=== PATIENT | male | born 1940 | race Caucasian/White ===

== ENCOUNTER 2019-10-10 08:07 | Emergency (ER) | payer OTHER ==
[~2019-10-10] VITALS: Ht 180.3 cm; Wt 118.8 kg
[2019-10-10] MEDS ORDERED: COZAAR 25 MG TA25 M1 PO (08:16)
[2019-10-10] MEDS ORDERED: TRAMADOL 50 MG50 MG PO (08:17)
[2019-10-10] MEDS ORDERED: HUMALOG100 UNIT/1 SUBQ (08:17)
[2019-10-10] MEDS ORDERED: LANTUS SUBQ (08:18)
--- NOTE | 2019-10-10 09:01 | EKG ---
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 : 1940 Requested By: Cyrus Goldstein Order Number: [id number] MD: Bipin Mckeon Measurements Intervals [place] Rate: 94 P: 16 SC: 197 QRS: -50 QRSD: 102 T: 71 QT: 347 QTc: 434 Interpretive Statements Sinus rhythm Left anterior fascicular block Abnormal R-wave progression, late transition No previous ECG available for comparison Electronically Signed On 10-10-2019 9:00:[address] by Bipin Mckeon [email or web address] <ELECTRONICALLY SIGNED> By: Bipin Mckeon MD, [facility] 10/10/19 0900 0835 [id number] Bipin Mckeon MD, FAC /EPI
[2019-10-10 09:03] LABS: ABSOLUTE NEUTROPHILS 9.3 thou/uL (1.4-8.2); BASOPHILS 0.4 % (0.0-2.0); EOSINOPHILS 0.3 % (0.0-3.0); HEMATOCRIT 39.9 % (42.0-52.0); HEMOGLOBIN 13.1 gm/dL (14.0-18.0); LYMPHOCYTES 9.3 % (24.0-44.0); MCH 34.4 pg (26.0-34.0); MCHC 32.8 g/dL (28.0-37.0); MCV 104.9 fL (80.0-100.0); MONOCYTES 5.8 % (1.0-8.0); PLATELET COUNT 231 thou/uL (150-400); POLYS 84.2 % (36.0-66.0); RDW 14.1 % (10.5-14.5); WBC 11.1 thou/uL (4.0-11.0)
[2019-10-10 09:16] LABS: ANION GAP 9 mmol/L (7-16); BUN 17 mg/dL (7-18); CALCIUM 9.6 mg/dL (8.5-10.1); CHLORIDE 105 mmol/L (98-107); CO2 25 mmol/L (21-32); CREATININE 1.2 mg/dL (0.7-1.3); GLUCOSE 298 mg/dL (74-106); POTASSIUM 4.3 mmol/L (3.5-5.1); SODIUM 139 mmol/L (136-145)
[2019-10-10 09:20] LABS: ALBUMIN 3.4 g/dL (3.4-5.0); MAGNESIUM 1.7 mg/dL (1.8-2.4); SGOT 13 U/L (15-37); SGPT 28 U/L (30-65); TOTAL BILIRUBIN 0.6 mg/dL (<0.1-1.0); TOTAL PROTEIN 7.5 g/dL (6.4-8.2); TROPONIN-I <0.06 ng/mL (<0.06)
[2019-10-10] MEDS ORDERED: TESSALON PERLE100 MG PO (09:49)
[2019-10-10] MEDS ORDERED: DOXYCYCLINE HY100 M3 PO (09:49)
[2019-10-10 10:26] VITALS: BP 136/66
== END 2019-10-10 10:27 | disposition home or self-care (01) ==
LOC: ER 08:07
PROVIDERS: Emergency Medicine
DX: J18.9 Pneumonia, unspecified organism (principal); E10.9 Type 1 diabetes mellitus without complications; D53.9 Nutritional anemia, unspecified; Z88.0 Allergy status to penicillin